=== PATIENT | male | born 1955 | race Hispanic/Latino ===

== ENCOUNTER 2017-02-22 10:14 | Inpatient (IN) | payer OTHER, MEDICARE ==
[2017-02-22] MEDS ORDERED: Morphine 4 mg/ml ISec IVP STA (10:34)
--- NOTE | 2017-02-22 10:37 | ED PDOC ---
Arrival/HPI - General Chief Complaint: Abdominal Pain Time Seen by Provider: 02/22/17 10:32 Historian: Patient - History of Present Illness Narrative History of Present Illness (Text): 02/22/17 10:35 61yo male with PMhx of Diabetes present with left sided flank pain with associated nausea and vomiting x 2, since this morning. Vomitus is nonbloody. Denies previous history. Denies diarrhea, constipation, urinary symptoms, hematuria, fever, chills, any other complaint. Past Medical History - Provider Review Nursing Documentation Reviewed: Yes - Infectious Disease Hx of Infectious Diseases: None - Endocrine/Metabolic Hx Diabetes Mellitus Type 2: Yes - Psychiatric Hx Substance Use: No - Anesthesia Hx Anesthesia: No Family/Social History - Physician Review Nursing Documentation Reviewed: Yes Family/Social History: Unknown Family HX Smoking Status: Unknown If Ever Smoked Hx Alcohol Use: No Hx Substance Use: No Allergies/Home Meds Allergies/Adverse Reactions: Allergies No Known Allergies Allergy (Verified 02/22/17 15:26) Home Medications: Home Meds Medication Instructions Recorded Confirmed Liraglutide [Victoza 2-Young] See Protocol SC ACHS 02/22/17 02/22/17 Lisinopril [Zestril] 10 tab PO DAILY 02/22/17 02/22/17 Sitagliptin Phos/Metformin HCl 1 tab PO DAILY 02/22/17 02/22/17 [Janumet 50-500 mg Tablet] Review of Systems - Physician Review All systems were reviewed & negative as marked: Yes - Review of Systems Constitutional: Normal Eyes: Normal ENT: Normal Respiratory: Normal Cardiovascular: Normal Gastrointestinal: Abdominal Pain, Nausea, Vomiting. absent: Constipation, Diarrhea, Hematochezia, Hematemesis Genitourinary Male: Normal Musculoskeletal: Normal Skin: Normal Neurological: Normal Endocrine: Normal Hemo/Lymphatic: Normal Psychiatric: Normal Physical Exam Vital Signs Temp Pulse Resp BP Pulse Ox 02/22/17 18:34 97.8 F 66 20 148/96 H 02/22/17 16:00 97.8 F 66 20 148/96 H 97 02/22/17 15:45 97.9 F 65 15 157/88 H 98 02/22/17 15:30 97.9 F 61 15 145/88 98 02/22/17 15:15 97.9 F 66 16 146/88 98 02/22/17 15:00 97.9 F 66 16 140/81 98 02/22/17 14:10 97.8 F 67 20 128/73 98 02/22/17 12:00 88 18 142/92 H 97 02/22/17 11:38 90 18 158/92 H 98 02/22/17 10:23 97.7 F 68 18 164/103 H 97 Medical Decision Making ED Course and Treatment: 02/22/17 20:09 PT presented for sttated history. His pain was controlled in ED with morphine Lab was unremarkable with the exception of elevated BS and he was hydrated and insulin given. He notes that he did not take his hypoglycemics today. Abdominal/Pelvis Mild left obstructive uropathy resulting from a 4mm stone in the mid ureter at the level of L3 vertebral body. Case was Dw Dr. Kirk and he recommended that pt be admitted for stent placement secondary to his diabetes history. Result and plan was DW the patient and he agreed Case was KIMBERLEE Anderson and pt was admitted to his service. - Lab Interpretations Lab Results: 02/22/17 11:10 02/22/17 11:10 Lab Results 02/22/17 11:10: Sodium 137, Potassium 4.2, Chloride 102, Carbon Dioxide 22, Anion Gap 17, BUN 22 H, Creatinine 0.9, Est GFR ( Amer) > 60, Est GFR ( Non-Af Amer) > 60, Random Glucose 326 H*, Calcium 9.4, Total Bilirubin 0.9, AST 39, ALT 73 H, Alkaline Phosphatase 105, Total Protein 7.2, Albumin 4.2, Globulin 3.1, Albumin/Globulin Ratio 1.4, Lipase 218 02/22/17 11:10: Urine Color Yellow, Urine Appearance Sl cloudy, Urine pH 5.5, Ur Specific [place] >= 1.030, Urine Protein 100 H, Urine Glucose (UA) >=1000, Urine Ketones Trace H, Urine Blood Large H, Urine Nitrate Negative, Urine Bilirubin Negative, Urine Urobilinogen 0.2, Ur Leukocyte Esterase Negative, Urine RBC Tntc, Urine WBC 0 - 2, Ur Epithelial Cells 1 - 3, Urine Bacteria Trace 02/22/17 11:10: PT 11.0, INR 1.00, APTT 33.3 02/22/17 11:10: WBC 9.6, RBC 5.36, Hgb 16.7, Hct 47.3, MCV 88.2, MCH 31.2, MCHC 35.3, RDW 12.9, Plt Count 245, MPV 10.6, Gran % 72.1 H, Lymph % (Auto) 19.5 L, Gaines % (Auto) 6.3 H, Eos % (Auto) 1.5, Baso % (Auto) 0.6, Gran # 6.90 H, Lymph # 1.9, Gaines # 0.6, Eos # 0.1, Baso # 0.06 - RAD Interpretation Radiology Orders: 02/22/17 10:33 ABD & PELVIS W/O PO OR IV CONT [CT] Stat - Medication Orders Current Medication Orders: Hydromorphone HCl (Dilaudid) 1 mg IVP Q4H PRN PRN Reason: severe pain Insulin Human Regular (Humulin R Low) 0 units SC ACHS AMANUEL PRN Reason: Protocol Morphine Sulfate (Morphine) 2 mg IVP Q15M PRN PRN Reason: Pain, moderate (4-7) Last Admin: 02/22/17 17:33 Dose: 2 mg MAR Pain Assessment Document 02/22/17 17:33 RA (Rec: 02/22/17 17:34 RA [id number]) Pain Reassessment Is this a pain reassessment? Yes Sleep Is patient sleeping during reassessment? No Presence of Pain Presence of Pain Yes Pain Scale Used Pain Scale Used Numeric Description Description Intermittent Intensity of Pain at present 7 IVP Administration Document 02/22/17 17:33 RA (Rec: 02/22/17 17:34 RA [id number]) Charges for Administration # of IVP Administrations 1 Ondansetron HCl (Zofran Inj) 4 mg IVP ONCE PRN PRN Reason: Nausea/Vomiting Phenazopyridine HCl (Pyridium) 200 mg PO [facility] Last Admin: 02/22/17 17:36 Dose: Discontinued Medications Famotidine (Pepcid) 20 mg IVP STAT STA Stop: 02/22/17 10:35 Last Admin: 02/22/17 11:00 Dose: 20 mg IVP Administration Document 02/22/17 11:00 KK (Rec: 02/22/17 11:07 [id number] Charges for Administration # of IVP Administrations 3 Ceftriaxone Sodium (Rocephin 1 Gram Ivpb) 1 gm in 100 mls @ 200 mls/hr IVPB STAT STA PRN Reason: Protocol Stop: 02/22/17 13:00 Last Admin: 02/22/17 18:12 Dose: Not Given Non-Admin Reason: Patient in OR/Vascular Lactated Ringer's (Lactated Ringer's) 1,000 mls @ 75 mls/hr IV .[id number] AMANUEL Stop: 02/22/17 15:31 Last Admin: 02/22/17 17:35 Dose: 75 mls/hr eMAR Start Stop Document 02/22/17 17:35 RA (Rec: 02/22/17 17:36 RA [id number]) Intravenous Solution Start Date 02/22/17 Start Time 15:00 End Date 02/22/17 End time 18:00 Total Infusion Time 180 Insulin Human Regular (Humulin R) 7 units IV ONCE STA PRN Reason: Protocol Stop: 02/22/17 12:31 Last Admin: 02/22/17 18:12 Dose: Not Given Non-Admin Reason: Patient in OR/Vascular Morphine Sulfate (Morphine) 4 mg IVP STAT STA Stop: 02/22/17 10:35 Last Admin: 02/22/17 10:58 Dose: 4 mg [facility] Pain Assessment Document 02/22/17 10:58 KK (Rec: 02/22/17 11:07 [facility] [id number]) Pain Reassessment Is this a pain reassessment? No Sleep Is patient sleeping during reassessment? No Presence of Pain Presence of Pain Yes Pain Scale Used Pain Scale Used Numeric Location Left, Right or Bilateral Left Upper or Lower Upper Pain Location Body Site Back Description Description Constant Intensity of Pain at present 10 Acceptable Level of Pain 4 Radiation Location flank Pain Behavior Guarding Irritability Restlessness Facial Grimacing Aggravating Factors Contant Alleviating Factors/Management Medication Techniques Alleviating Factors Medication IVP Administration Document 02/22/17 10:58 KK (Rec: 02/22/17 11:07 [facility] [id number]) Charges for Administration # of IVP Administrations 3 Re-Assess: MAR Pain Assessment Document 02/22/17 11:58 RA (Rec: 02/22/17 17:36 RA [id number]) Pain Reassessment Is this a pain reassessment? Yes Sleep Is patient sleeping during reassessment? No Presence of Pain Presence of Pain No Ondansetron HCl (Zofran Inj) 4 mg IVP STAT STA Stop: 02/22/17 10:35 Last Admin: 02/22/17 11:00 Dose: 4 mg IVP Administration Document 02/22/17 11:00 [facility] (Rec: 02/22/17 11:08 [facility] [id number]) Charges for Administration # of IVP Administrations 3 Pneumococcal Polyvalent Vaccine (Pneumovax 23 Vaccine) 0.5 ml IM .ONCE ONE Stop: 02/22/17 18:52 Disposition/Present on Arrival - Present on Arrival Any Indicators Present on Arrival: No History of DVT/PE: No History of Uncontrolled Diabetes: No Urinary Catheter: No History of Decub. Ulcer: No History Surgical Site Infection Following: None - Disposition Have Diagnosis and Disposition been Completed?: Yes Diagnosis: Kidney stone Disposition: HOSPITALIZED Disposition Time: 12:35 Patient Problems: Current Active Problems Problem Status Onset Kidney stone Acute Condition: FAIR
[2017-02-22 11:29] LABS: BASO # 0.06 K/mm3 (0.0-2.0); BASO % 0.6 % (0.0-3.0); EOS # 0.1 (0.0-0.7); EOS % 1.5 % (1.5-5.0); GRAN # 6.9 (1.4-6.5); GRAN % 72.1 % (50.0-68.0); HEMATOCRIT 47.3 % (42.0-52.0); LYMPH # 1.9 (1.2-3.4); LYMPH % 19.5 % (22.0-35.0); MEAN CELL VOLUME 88.2 fl (80.0-105.0); MEAN CORPUSCULAR HEMOGLOBIN 31.2 pg (25.0-35.0); MEAN CORPUSCULAR HGB CONC 35.3 g/dl (31.0-37.0); MEAN PLATELET VOLUME 10.6 fl (7.0-11.0); MONO # 0.6 (0.1-0.6); MONO % 6.3 % (1.0-6.0); PH,URINE 5.5 (4.7-8.0); RED CELL DISTRIBUTION WIDTH 12.9 % (11.5-14.5); URINE BILIRUBIN NEGATIVE (NEGATIVE); URINE BLOOD LARGE (NEGATIVE); URINE GLUCOSE (UA) >=1000 mg/dL (NEGATIVE); URINE KETONE TRACE mg/dL (NEGATIVE); URINE LEUKOCYTE ESTERASE NEGATIVE Leu/uL (NEGATIVE); URINE PROTEIN 100 mg/dL (<30 mg/dL); URINE UROBILINOGEN 0.2 E.U./dL (<1 E.U./dL); WHITE BLOOD COUNT 9.6 10^3/ul (4.5-11.0)
[2017-02-22 11:34] LABS: URINE APPEARANCE SL CLOUDY (CLEAR); URINE COLOR YELLOW (YELLOW)
[2017-02-22 11:37] LABS: URINE BACTERIA TRACE (NEG); URINE RBC TNTC /hpf (0-2); URINE WBC 0 - 2 /hpf (0-6)
[2017-02-22 11:40] LABS: ALB/GLOB RATIO 1.4 (1.1-1.8); ALKALINE PHOSPHATASE 105 U/L (38-126); ALT/SGPT 73 U/L (7-56); AST/SGOT 39 U/L (17-59); BILIRUBIN,TOTAL 0.9 mg/dL (0.2-1.3); BLOOD UREA NITROGEN 22 mg/dL (7-21); CALCIUM 9.4 mg/dL (8.4-10.5); CARBON DIOXIDE 22 mmol/L (21-33); CHLORIDE 102 mmol/L (98-107); GFR AFRICAN-AMERICAN > 60; LIPASE 218 U/L (23-300); PARTIAL THROMBOPLASTIN TIME 33.3 Seconds (25.1-36.5); POTASSIUM 4.2 mmol/L (3.6-5.0); SODIUM 137 mmol/L (132-148); TOTAL PROTEIN 7.2 g/dL (5.8-8.3)
[2017-02-22 11:41] LABS: GLUCOSE,RANDOM 326 mg/dL (70-110)
--- NOTE | 2017-02-22 11:51 | CT ---
PROCEDURE: CT Abdomen and Pelvis without intravenous contrast HISTORY: Left flank pain COMPARISON: None. TECHNIQUE: CT scan of the abdomen and pelvis was performed without administration of intravenous contrast. Oral contrast was not administered. Coronal and sagittal reformatted images were obtained. Radiation dose: Total exam DLP = 1329.56 mGy-cm. This CT exam was performed using one or more of the following dose reduction techniques: Automated exposure control, adjustment of the mA and/or kV according to patient size, and/or use of iterative reconstruction technique. FINDINGS: LOWER THORAX: The visualized lungs are clear. LIVER: The liver is normal in size and there is diffuse fatty infiltration. No gross lesion or ductal dilatation. GALLBLADDER AND BILE DUCTS: The gallbladder is well distended and there are few small gallstones. PANCREAS: The pancreas is normal in size. No gross lesion or ductal dilatation. SPLEEN: Normal in size. ADRENALS: Both adrenal glands are normal in size without discrete nodule. KIDNEYS AND URETERS: There is mild left obstructive uropathy resulting from a 4 mm obstructing stone in the left mid ureter at the level of L3 vertebral body with mild dilatation of the proximal ureteral, mild hydronephrosis and extensive perinephric inflammatory changes. VASCULATURE: No aortic aneurysm. BOWEL: The small bowel loops are normal in caliber. There is moderate amount of stool scattered throughout the colon. No bowel dilatation or obstruction. APPENDIX: Normal appendix. PERITONEUM: No free fluid. No free air. LYMPH NODES: No enlarged lymph nodes. BLADDER: Grossly normal in appearance. REPRODUCTIVE: The prostate gland is normal in size with central coarse calcifications. BONES: No acute fracture. Severe degenerative disc disease at L3-4. OTHER FINDINGS: None. IMPRESSION: 1. Mild left obstructive uropathy resulting from a 4 mm stone in the mid ureter at the level of L3 vertebral body. 2. Fatty liver.
[2017-02-22] MEDS ORDERED: Insulin Regular 1 UNITS/0.01 ML ML IV STA (12:30)
[2017-02-22] MEDS ORDERED: cefTRIAXone 1 gm 1 GM/100 ML BAG IVPB STA (12:31)
[2017-02-22] MEDS ORDERED: Lactated Ringer's 1,000 ML IV SCH (13:30)
[2017-02-22] MEDS ORDERED: Propofol 10 mg/ml Inj (20 ML) ONE (14:11)
[2017-02-22] MEDS ORDERED: Midazolam 2 MG/2 ML VIAL ONE (14:12)
[2017-02-22] MEDS ORDERED: cefTRIAXone (Rocephin) 1 gm Inj ONE (14:30)
[2017-02-22] MEDS: Morphine 2 mg/ml ISec IVP PRN ×2 (15:35→17:33)
--- NOTE | 2017-02-22 15:43 | RAD ---
PROCEDURE: Fluoroscopy up to 1 hour HISTORY: LT STENT INSERTION COMPARISON: TECHNIQUE: Fluoroscopy was provided in the operating room. 52 seconds of fluoro time. Three images were submitted FINDINGS: The study shows placement of a left ureteral stent IMPRESSION: As above
--- NOTE | 2017-02-22 16:20 | OP ---
PROCEDURE DATE: 02/22/2017 PREOPERATIVE DIAGNOSIS: Obstructing left upper ureteral calculus. POSTOPERATIVE DIAGNOSIS: Obstructing left upper ureteral calculus. PROCEDURE: Cystoscopy, insertion of left pigtail stent. SURGEON: Isauro Kirk MD ANESTHESIA: LMA. DESCRIPTION OF OPERATION: After adequate LMA anesthesia was given, the patient was placed in lithotomy, prepped and draped in usual manner. A 22-[place]an cystourethroscope was introduced. The inspection showed anterior urethra was normal. Prostatic urethra showed mild bilobar occlusion, slightly high bladder neck. The bladder showed grade 1 trabeculation, no tumors, foreign bodies, or stones. Orifices were normal in appearance and location. Clear efflux from the right, there was no efflux seen from the left. An open-ended catheter was placed at the left ureteral orifice. A 0.035 sensor wire was advanced up and the left ureter went into the kidney and coiled. The open-ended catheter was removed leaving the sensor wire in place. Over the sensor wire, a 6-Sing[place]an 28 cm pigtail stent was placed and properly placed. The sensor wire was removed and the stent coiled nicely in the left renal pelvis in the bladder. Upon initial introduction of the cystoscope, the urine was obtained for C and S. At the completion, the bladder was drained. The cystoscope was removed. The patient was awakened and brought to the recovery room in good condition. Isauro Kirk MD
[2017-02-22] MEDS ORDERED: HYDROmorphone 1 mg/ml ISec IVP PRN (18:31)
[2017-02-22 18:33] VITALS: RESP 20
[2017-02-22 18:51] VITALS: BMI 39.0
[2017-02-22] MEDS ORDERED: Influenza Vaccine 60 mcg/0.5 mL SYR (4YR UP) IM ONE (18:51)
[2017-02-22] MEDS ORDERED: Pneumococcal 23-Valent Vaccine IM ONE (18:51)
--- NOTE | 2017-02-22 19:27 | CON ---
DATE: 02/22/2017 GI CONSULTATION CHIEF COMPLAINT: Left flank pain. HISTORY OF PRESENT ILLNESS: This is a 61-year-old non-insulin dependent diabetic who came to the ER with left flank pain associated with nausea and vomiting. No fever or chills, although his said he did feel like he had chills last night. The CAT scan was reviewed by me. He has a 4 mm obstructing upper ureteral calculus on the left. PAST MEDICAL HISTORY: Is significant for type 2 diabetes. SOCIAL HISTORY: Is noncontributory. FAMILY HISTORY: Is noncontributory. ALLERGIES: HE HAS NO ALLERGIES. MEDICATIONS: At home, he takes Zestril, Victoza, and combination of metformin and Janumet. REVIEW OF SYSTEMS: Currently, no symptoms referable to the head, eyes, ears, nose, or throat. No cardiac or respiratory systems. He does have some intermittent left flank pain; otherwise, no nausea or vomiting. No symptoms referable to genitourinary tract, psychiatric symptoms, dermatologic and neurological symptoms. PHYSICAL EXAMINATION VITAL SIGNS: Shows him to be afebrile, pulse 67, blood pressure 128/73, respirations 20. HEENT: Normocephalic. Sclerae clear. Conjunctivae non-injected. ABDOMEN: No rebound or guarding. Minimal left CVA tenderness. No suprapubic fullness. GENITALIA: Penis, testicles, cord, epididymis all normal. SKIN: No purpura or edema. NEUROLOGIC: He is well oriented x3. LABORATORY DATA: Lab work shows white count 9,600, hemoglobin 16.7. Creatinine 0.9 with a BUN of 22. Coags are normal. His urine had too numerous to count rbc's. PLAN: I reviewed the CAT scan. I will place a left pigtail stent and if he is afebrile in the morning, he can be discharged. Isauro Kirk MD
[2017-02-22] MEDS: Insulin Reg-LOW-Coverage SC SCH (22:51)
[2017-02-23 09:02] VITALS: BP 110/50; PULSE 70; TEMP 98.6; O2SAT 95
--- NOTE | 2017-02-23 09:10 | RAD ---
HISTORY: POST OP COMPARISON: Unenhanced abdomen and pelvis CT examination 02/22/2017. FINDINGS: BOWEL: A left-sided double-J ureteral stent is in position without definitive radiodense urolithiasis identified abutting the stent at this time. The prior spindle shaped calculus in the mid left ureter seen in CT 02/22/2017 is not clearly identified on the current radiographs. Solitary density at inferior left hemipelvis soft tissues likely corresponds to the phlebolith like calcifications seen previously. No suspicious right sided abdominal radiodensities and there is a nonobstructive bowel gas pattern appreciated. No gross free intrarenal gas. BONES: Degenerative lumbar spondylosis. OTHER FINDINGS: None. IMPRESSION: The left-sided double-J ureteral stent is appreciated in position as discussed above. No definite radiodense urolithiasis is seen abutting the course of the stent. Please see discussion above.
[2017-02-23] MEDS: Insulin Reg-LOW-Coverage SC SCH (10:21)
--- NOTE | 2017-02-23 10:54 | DS ---
HISTORY AND HOSPITAL COURSE: The patient was admitted with a left nephroureterolithiasis and left hydronephrosis and history of ygk-[id number]-mdhynpkwm diabetes mellitus. The patient was in custody of Dr. Kirk, who took the patient to the surgery and placed a stent. Stone is not passed at this point, but the patient is afebrile. Vitals signs are stable. He has minimal pain, pain is shifting to the left flank and left anterior lower abdomen. The patient will be discharge home in improved condition and follow up with Dr. Kirk as an outpatient for possible lithotripsy versus basket retrieval of stone. FINAL DISCHARGE DIAGNOSES: The left ureterolithiasis, left hydronephrosis, and ccj-rahyuar-zitolstrt diabetes mellitus. Adam Anderson MD
--- NOTE | 2017-02-23 14:03 | HP ---
DATE: 02/22/2017 HISTORY OF PRESENT ILLNESS: The patient is a 61-year-old white male with a history of chronic back pain, exg-qzulspn-vrsacqyob diabetes mellitus, and mild hypertension, who developed acute left flank pain with some dysuria and frequency. The patient came to the ER and was found to have a 5-mm stone in the mid left ureter with some mild hydronephrosis. The patient was taken to surgery with Dr. Kirk and had a stent placed. PHYSICAL EXAMINATION: GENERAL: Shows a well-developed, slight obese white male in moderate discomfort. HEENT: Within normal limits. HEART: Reveals sinus rhythm. No S3 or murmur. ABDOMEN: Obese but benign. There is some left flank tenderness on palpation and percussion. EXTREMITIES: No cyanosis, clubbing, or edema. NEUROLOGIC: Grossly intact. IMPRESSION: Left ureterolithiasis with left hydronephrosis, [id number] diabetes mellitus and . Adam Anderson MD
== END 2017-02-23 10:46 | disposition home or self-care (01) | DRG 694 ==
LOC: ED 10:14 → ERH 13:15 → 3RSO 17:15
PROVIDERS: ADMIT Internal Medicine; ATTEND Internal Medicine
PROC: 0T778DZ Dilation of Left Ureter with Intraluminal Device, Via Natural or Artificial Opening Endoscopic (ICD-10-PCS; principal; 2017-02-22 15:00)
DX: N13.2 Hydronephrosis with renal and ureteral calculous obstruction (principal); E11.9 Type 2 diabetes mellitus without complications; I10 Essential (primary) hypertension; G89.29 Other chronic pain; Z79.84 Long term (current) use of oral hypoglycemic drugs

== ENCOUNTER 2017-07-24 12:31 | Emergency (ER) | payer MEDICARE ==
[2017-07-24 12:31] VITALS: BMI 39.0
[2017-07-24 12:50] VITALS: TEMP 98
--- NOTE | 2017-07-24 13:25 | ED PDOC ---
Arrival/HPI - General Chief Complaint: Abdominal Pain Time Seen by Provider: 07/24/17 12:50 Historian: Patient - History of Present Illness Narrative History of Present Illness (Text): you were treated in the ED today for having right groin discomfort intermittently without otherwise without any nausea/vomiting/headache/dizziness/ difficulty breathing/chest pain/abdomen pain/numbness/tingling/loss of limb function/pain with urination/blood in urine/testicular pain/discomfort. 07/24/17 13:24 07/24/17 14:08 Time/Duration: 24 hours Symptom Onset: Gradual Symptom Course: Resolved Activities at Onset: Rest Context: Sitting Past Medical History - Provider Review Nursing Documentation Reviewed: Yes - Travel History Have you recently traveled outside [place] w/in the past 3 mons?: No - Infectious Disease Hx of Infectious Diseases: None - Cardiac Hx Cardiac Disorders: Yes Hx Hypertension: Yes - Pulmonary Hx Respiratory Disorders: No - Neurological Hx Neurological Disorder: No - HEENT Hx HEENT Disorder: Yes (WEARS RX GLASSES) - Renal Hx Renal Disorder: Yes Hx Kidney Stones: Yes (4 MM 02-22-17) - Endocrine/Metabolic Hx Endocrine Disorders: Yes Hx Diabetes Mellitus Type 2: Yes - Hematological/Oncological Hx Blood Disorders: No - Integumentary Hx Dermatological Disorder: Yes (SCAR TO BILATERAL KNEE -BARBARA KNEE REPLACEMENT SCARRING,SCAR TO LEFT TOP/FOOT) - Musculoskeletal/Rheumatological Hx Musculoskeletal Disorders: Yes (BILATERAL KNEE REPLACEMENT AND ARTHROSCOPY,R HEEL SPUR SX.) - Gastrointestinal Hx Gastrointestinal Disorders: No - Genitourinary/Gynecological Hx Genitourinary Disorders: No - Psychiatric Hx Psychophysiologic Disorder: No Hx Substance Use: No - Surgical History Hx Orthopedic Surgery: Yes - Anesthesia Hx Anesthesia: No Family/Social History - Physician Review Nursing Documentation Reviewed: Yes Family/Social History: No Known Family HX Smoking Status: Never Smoked Hx Alcohol Use: No Hx Substance Use: No Allergies/Home Meds Allergies/Adverse Reactions: Allergies No Known Allergies Allergy (Verified 07/24/17 12:45) Home Medications: Home Meds Medication Instructions Recorded Confirmed Liraglutide [Victoza 2-Young] See Protocol SC ACHS 02/22/17 07/24/17 Lisinopril [Zestril] 10 tab PO DAILY 02/22/17 07/24/17 Sitagliptin Phos/Metformin HCl 1 tab PO DAILY 02/22/17 07/24/17 [Janumet 50-500 mg Tablet] Review of Systems - Review of Systems Constitutional: Normal Eyes: Normal ENT: Normal Respiratory: Normal Cardiovascular: Normal Gastrointestinal: Abdominal Pain Genitourinary Male: Normal Musculoskeletal: Normal Skin: Normal Neurological: Normal Endocrine: Normal Hemo/Lymphatic: Normal Psychiatric: Normal Physical Exam Vital Signs Reviewed: Yes Vital Signs Temp Pulse Resp BP Pulse Ox 07/24/17 12:46 98.0 F 90 16 120/80 93 L Temperature: Afebrile Blood Pressure: Hypertensive Pulse: Regular Respiratory Rate: Normal Appearance: Positive for: Well-Appearing, Non-Toxic, Comfortable Pain Distress: None Mental Status: Positive for: Alert and Oriented X 3 - Systems Exam Head: Present: Atraumatic, Normocephalic Pupils: Present: PERRL Extroacular Muscles: Present: EOMI Conjunctiva: Present: Normal Ears: Present: Normal Mouth: Present: Moist Mucous Membranes Pharnyx: Present: Normal Nose (External): Present: Atraumatic Nose (Internal): Present: Normal Inspection Neck: Present: Normal Range of Motion Respiratory/Chest: Present: Clear to Auscultation, Good Air Exchange Cardiovascular: Present: Regular Rate and Rhythm Abdomen: No: Tenderness, Distention, Normal Bowel Sounds, Peritoneal Signs, Rebound, Guarding, McBurney's Point Tender, Rovsing's Sign Present, Hernias, Feeding Tubes, Ostomy Tubes, Mass/Organomegaly, Scars, Other Genitourinary Male: Present: Normal External Genitalia. No: Circumcised Penis, Lesions, Penile Discharge, Testicle Tenderness, Penile Swelling, Masses, Erythema, Hernias, Testicle Swelling, Prostate Tenderness, Prostate Enlargement , Other (no penis/scrotal/testicular lesions/tenderness and good position w positive cremasteric reflex. no sign of torsion.) Back: Present: Normal Inspection Upper Extremity: Present: Normal Inspection Lower Extremity: Present: Normal Inspection Neurological: Present: GCS=15, CN II-XII Intact, Speech Normal, Motor Func Grossly Intact Skin: Present: Warm, Normal Color Psychiatric: Present: Alert, Oriented x 3, Normal Insight, Normal Concentration Medical Decision Making ED Course and Treatment: you were treated in the ED today for hx of HTN, Diabetes, having right groin discomfort intermittently without otherwise without any nausea/vomiting/headache /dizziness/difficulty breathing/chest pain/abdomen pain/numbness/tingling/loss of limb function/pain with urination/blood in urine/testicular pain/discomfort. You refused sexual disease testing or treatment at this time. You were otherwise breathing easily, smiling and talking easily, good strength/sensation , walking easily, clear lungs, mild groin, no abdomen tenderness, no testicular/ penis/scrotal pain with good position and reaction, no fever temp 98, stable heart rate 90, stable breathing rate 16, stable oxygen level 93% room air, elevated blood pressure 120/80 which we recommend repeat in 2-3 days primary care office to determine further treatment, you have blood tests no infection count 10, stable blood level hemoglobin 17/platelets 251, stable chemistry, glucose elevated 320 and normal anion gap 15, liver ALT mildly elevated 100, lipase mildly elevated 301 without abdomen tenderness and ct abdomen/pelvis normal thus no sign of pancreatitis, urine test no acute sign of infection, radiology ct abdomen/pelvis no acute findings, refused pain mediction, observation done in the ED with improvement, you refused intravenous fluids and repeat blood sugar testing to ensure improvement and counselled for complications, counselled to monitor symptoms, drink lots of fluids and thus discharged home. 1. Recommend continue your home blood sugar medications. 2. Recommend check your blood sugar regularly. 3. Recommend follow-up primary care 2-3 days to review symptom, referral to endocrine clinic for blood sugar elevation to ensure further care, referral to gastroenterology/surgery clinic for mildly elevated liver tests and lipase test and small gallstones in gallbladder to ensure no complications/cancer development. 4. If any worsening pain, fever, chills, nausea, vomiting, difficulty breathing, numbness, loss of limb function, pain with urination or any medical condition then return to the ED. 07/24/2017 13:57 Abd/Pelvis CT IMPRESSION: No acute findings. Dictator: Imtiaz Chavez MD Reassessment Condition: Re-examined, Improved - Lab Interpretations Lab Results: 07/24/17 14:20 07/24/17 14:20 Lab Results 07/24/17 14:20: Sodium 138, Potassium 4.7, Chloride 103, Carbon Dioxide 25, Anion Gap 15, BUN 14, Creatinine 0.6 L, Est GFR ( Amer) > 60, Est GFR ( Non-Af Amer) > 60, Random Glucose 320 H*, Calcium 10.6 H, Total Bilirubin 0.6, AST 47, ALT 100 H, Alkaline Phosphatase 104, Total Protein 6.9, Albumin 3.9, Globulin 3.0, Albumin/Globulin Ratio 1.3, Lipase 301 H 07/24/17 14:20: Urine Color Yellow, Urine Appearance Clear, Urine pH 6.0, Ur Specific [place] 1.015, Urine Protein Negative, Urine Glucose (UA) >=1000, Urine Ketones Negative, Urine Blood Negative, Urine Nitrate Negative, Urine Bilirubin Negative, Urine Urobilinogen 0.2, Ur Leukocyte Esterase Negative 07/24/17 14:20: PT 11.7, INR 1.03, APTT 32.7 07/24/17 14:20: WBC 10.0, RBC 5.62, Hgb 17.3, Hct 48.9, MCV 87.0, MCH 30.8, MCHC 35.4, RDW 12.8, Plt Count 251, MPV 10.4, Gran % 71.1 H, Lymph % (Auto) 18.8 L, [place] % (Auto) 8.0 H, Eos % (Auto) 1.7, Baso % (Auto) 0.4, Gran # 7.09 H , Lymph # (Auto) 1.9, [place] # (Auto) 0.8 H, Eos # (Auto) 0.2, Baso # (Auto) 0.04 I have reviewed the lab results: Yes - RAD Interpretation Radiology Orders: 07/24/17 13:23 ABD & PELVIS W/O PO OR IV CONT [CT] Stat [employer] Examiner: Radiologist (see mdm) - Medication Orders Current Medication Orders: Sodium Chloride (Sodium Chloride 0.9%) 1,000 mls @ 999 mls/hr IV .Q1H1M STA Stop: 07/24/17 16:06 Disposition/Present on Arrival - Present on Arrival Any Indicators Present on Arrival: No History of DVT/PE: No History of Uncontrolled Diabetes: No Urinary Catheter: No History of Decub. Ulcer: No History Surgical Site Infection Following: None - Disposition Have Diagnosis and Disposition been Completed?: Yes Diagnosis: Groin pain, Hyperglycemia Disposition: HOME/ ROUTINE Disposition Time: 15:27 Patient Plan: Discharge Condition: CRITICAL Discharge Instructions (ExitCare): Hyperglycemia, Adult (DC) Additional Instructions: you were treated in the ED today for hx of HTN, Diabetes, having right groin discomfort intermittently without otherwise without any nausea/vomiting/headache /dizziness/difficulty breathing/chest pain/abdomen pain/numbness/tingling/loss of limb function/pain with urination/blood in urine/testicular pain/discomfort. You refused sexual disease testing or treatment at this time. You were otherwise breathing easily, smiling and talking easily, good strength/sensation , walking easily, clear lungs, mild groin, no abdomen tenderness, no testicular/ penis/scrotal pain with good position and reaction, no fever temp 98, stable heart rate 90, stable breathing rate 16, stable oxygen level 93% room air, elevated blood pressure 120/80 which we recommend repeat in 2-3 days primary care office to determine further treatment, you have blood tests no infection count 10, stable blood level hemoglobin 17/platelets 251, stable chemistry, glucose elevated 320 and normal anion gap 15, liver ALT mildly elevated 100, lipase mildly elevated 301 without abdomen tenderness and ct abdomen/pelvis normal thus no sign of pancreatitis, urine test no acute sign of infection, radiology ct abdomen/pelvis no acute findings, refused pain mediction, observation done in the ED with improvement, you refused intravenous fluids and repeat blood sugar testing to ensure improvement and counselled for complications, counselled to monitor symptoms, drink lots of fluids and thus discharged home. 1. Recommend continue your home blood sugar medications. 2. Recommend check your blood sugar regularly. 3. Recommend follow-up primary care 2-3 days to review symptom, referral to endocrine clinic for blood sugar elevation to ensure further care, referral to gastroenterology/surgery clinic for mildly elevated liver tests and lipase test and small gallstones in gallbladder to ensure no complications/cancer development. 4. If any worsening pain, fever, chills, nausea, vomiting, difficulty breathing, numbness, loss of limb function, pain with urination or any medical condition then return to the ED. Forms: [email or web address] (Romansh)
--- NOTE | 2017-07-24 13:58 | CT ---
PROCEDURE: CT Abdomen and Pelvis without intravenous contrast HISTORY: 62yoM, with right groin discomfort COMPARISON: None. TECHNIQUE: Without contrast.. Contrast Dose: Radiation dose: Total exam DLP = Total exam DLP = 1082 mGy-cm. This CT exam was performed using one or more of the following dose reduction techniques: Automated exposure control, adjustment of the mA and/or kV according to patient size, and/or use of iterative reconstruction technique. FINDINGS: LOWER THORAX: Unremarkable. LIVER: Unremarkable. No gross lesion or ductal dilatation. There is fatty infiltration of the liver GALLBLADDER AND BILE DUCTS: Small stones in the gallbladder PANCREAS: Unremarkable. No gross lesion or ductal dilatation. SPLEEN: Unremarkable. ADRENALS: Unremarkable. No mass. KIDNEYS AND URETERS: Unremarkable. No hydronephrosis. No solid mass. VASCULATURE: Unremarkable. No aortic aneurysm. BOWEL: Unremarkable. No obstruction. No gross mural thickening. APPENDIX: Unremarkable. Normal appendix. PERITONEUM: Unremarkable. No free fluid. No free air. LYMPH NODES: Mildly enlarged lymph nodes are seen in the peripancreatic and periportal regions BLADDER: Unremarkable. REPRODUCTIVE: Unremarkable. BONES: Disc degeneration at L3-4 OTHER FINDINGS: None. IMPRESSION: No acute findings
[2017-07-24 14:26] LABS: BASO # 0.04 K/mm3 (0.0-2.0); BASO % 0.4 % (0.0-3.0); EOS # 0.2 (0.0-0.7); EOS % 1.7 % (1.5-5.0); GRAN # 7.09 (1.4-6.5); GRAN % 71.1 % (50.0-68.0); HEMOGLOBIN 17.3 g/dL (14.0-18.0); LYMPH # 1.9 (1.2-3.4); LYMPH % 18.8 % (22.0-35.0); MEAN CORPUSCULAR HEMOGLOBIN 30.8 pg (25.0-35.0); MEAN CORPUSCULAR HGB CONC 35.4 g/dl (31.0-37.0); MEAN PLATELET VOLUME 10.4 fl (7.0-11.0); MONO # 0.8 (0.1-0.6); RBC 5.62 10^6/uL (3.5-6.1); RED CELL DISTRIBUTION WIDTH 12.8 % (11.5-14.5)
[2017-07-24 14:29] LABS: URINE BILIRUBIN NEGATIVE (NEGATIVE); URINE BLOOD NEGATIVE (NEGATIVE); URINE GLUCOSE (UA) >=1000 mg/dL (NEGATIVE); URINE LEUKOCYTE ESTERASE NEGATIVE Leu/uL (NEGATIVE); URINE PROTEIN NEGATIVE mg/dL (<30 mg/dL); URINE UROBILINOGEN 0.2 E.U./dL (<1 E.U./dL)
[2017-07-24 14:33] LABS: URINE APPEARANCE CLEAR (CLEAR); URINE COLOR YELLOW (YELLOW)
[2017-07-24 14:37] LABS: INR 1.03 (0.93-1.08); PARTIAL THROMBOPLASTIN TIME 32.7 Seconds (25.1-36.5); PROTHROMBIN TIME 11.7 SECONDS (9.4-12.5)
[2017-07-24 14:45] LABS: ALB/GLOB RATIO 1.3 (1.1-1.8); ALBUMIN 3.9 g/dL (3.0-4.8); ALT/SGPT 100 U/L (7-56); AST/SGOT 47 U/L (17-59); BLOOD UREA NITROGEN 14 mg/dL (7-21); CALCIUM 10.6 mg/dL (8.4-10.5); GFR AFRICAN-AMERICAN > 60; GFR NON-AFRICAN AMERICAN > 60; LIPASE 301 U/L (23-300)
[2017-07-24] MEDS ORDERED: Sodium Chloride 0.9% 1,000 ML IV STA (15:06)
[2017-07-25 11:09] VITALS: BP 132/75; PULSE 86; RESP 18; O2SAT 97
== END 2017-07-24 15:46 | disposition home or self-care (01) ==
LOC: ED 12:31
DX: E11.65 Type 2 diabetes mellitus with hyperglycemia (principal); R10.30 Lower abdominal pain, unspecified; I10 Essential (primary) hypertension